=== PATIENT | female | born 1985 | race Caucasian/White ===

== ENCOUNTER 2021-05-13 01:33 | Emergency (ER) | payer MEDICAID ==
--- NOTE | 2021-05-13 02:16 | EDM.PDOC ---
ED HPI GENERAL MEDICAL PROBLEM - General Chief Complaint: General Stated Complaint: swelling bilateral feet and legs Time Seen by Provider: 05/13/21 01:55 Source of Information: Reports: Patient History Limitations: Reports: No Limitations - History of Present Illness INITIAL COMMENTS - FREE TEXT/NARRATIVE: 35 YO OBESE WF PRESENTS TO ER COMPLAINING OF BILATERAL LOWER EXTREMITY SWELLING WHICH HAS BEEN INTERMITTENT OVER THE PAST MONTH. PT REPORTS SHE WAS WALKING AROUND [place] THE [facility] ALL DAY AND NOW HAS INCREASED PAIN AND SWELLING IN HER LOWER EXTREMITIES PROMPTING ER EVALUATION. PT WITH PMH OF NEUROPATHY BUT STATES SHE IS NOT TAKING ANY MEDICATIONS CURRENTLY. PT DENIES CHEST PAIN, SHORTNESS OF BREATH, OR ANY KNOWN INJURY. PT WITH CHRONIC TOBACCO USE HISTORY BUT DENIES CRAMPING OF LOWER EXTREMITIES WITH INCREASED ACTIVITY. Duration: Chronic Location: Reports: Lower Extremity, Left, Lower Extremity, Right Quality: Reports: Ache Severity: Mild Improves with: Reports: Rest Worsens with: Reports: Movement Associated Symptoms: Reports: No Other Symptoms. Denies: Chest Pain, Shortness of Breath Bilateral Leg Pain Score (Numeric/FACES): 10 - Related Data Allergies Allergy/AdvReac Type Severity Reaction Status Date / Time bupropion HCl Allergy Cannot Verified 05/13/21 01:49 [From Wellbutrin] Remember nortriptyline [Nortriptyline] Allergy Depression Verified 05/13/21 01:49 tramadol HCl [From Ultram] Allergy Confusion Verified 05/13/21 01:49 Home Meds: Home Meds Furosemide [Lasix] 20 mg PO Q8H PRN #10 tab 05/13/21 [Rx] Past Medical History HEENT History: Reports: Impaired Vision Gastrointestinal History: Reports: Irritable Bowel Syndrome Genitourinary History: Reports: None 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 energy drinks - one daiy. pepsi - 2 cans per day ED ROS GENERAL - Review of Systems Review Of Systems: See Below Constitutional: Reports: No Symptoms HEENT: Reports: No Symptoms Respiratory: Reports: No Symptoms Cardiovascular: Reports: No Symptoms Endocrine: Reports: No Symptoms GI/Abdominal: Reports: No Symptoms : Reports: No Symptoms Musculoskeletal: Reports: Leg Pain Skin: Reports: No Symptoms Neurological: Reports: No Symptoms Psychiatric: Reports: No Symptoms Hematologic/Lymphatic: Reports: No Symptoms Immunologic: Reports: No Symptoms ED EXAM, GENERAL - Physical Exam Exam: See Below Exam Limited By: No Limitations General Appearance: Alert, WD/WN, No Apparent Distress Head: Atraumatic, Normocephalic Neck: Normal Inspection, Supple, Non-Tender, Full Range of Motion Respiratory/Chest: No Respiratory Distress, Lungs Clear, Normal Breath Sounds, No Accessory Muscle Use, Chest Non-Tender Cardiovascular: Normal Peripheral Pulses, Regular Rate, Rhythm, No Edema, No Gal lop, No JVD, No Murmur, No Rub GI/Abdominal: Normal Bowel Sounds, Soft, Non-Tender, No Organomegaly, No Distention, No Abnormal Bruit, No Mass Back Exam: Normal Inspection, Full Range of Motion, NT Extremities: Leg Pain. No: Increased Warmth, Redness Neurological: Alert, Oriented, CN II-XII Intact, Normal Cognition, Normal Gait, Normal Reflexes, No Motor/Sensory Deficits Psychiatric: Normal Affect, Normal Mood Skin Exam: Warm, Dry, Intact, Normal Color, No Rash Lymphatic: No Adenopathy Course - Vital Signs Last Recorded V/S: Last Vital Signs Temp 97.6 F 05/13/21 02:00 Pulse 104 H 05/13/21 02:00 Resp 20 05/13/21 02:00 BP 135/89 05/13/21 02:00 Pulse Ox 95 05/13/21 02:00 - Orders/Labs/Meds Meds: Medications Discontinued Medications Generic Name Dose Route Start Last Admin Trade Name Campos PRN Reason Stop Dose Admin Furosemide 40 mg 05/13/21 02:17 05/13/21 02:22 Furosemide 20 Mg Tab PO 05/13/21 02:18 40 mg ONETIME ONE Administration Ketorolac Tromethamine 60 mg 05/13/21 02:17 05/13/21 02:25 Ketorolac 60 Mg/2 Ml Sdv IM 05/13/21 02:18 60 mg ONETIME ONE Administration Departure - Departure Time of Disposition: 02:23 Disposition: Home, Self-Care 01 Condition: Good Clinical Impression: Peripheral edema - Discharge Information Prescriptions: Furosemide [Lasix] 20 mg PO Q8H PRN #10 tab PRN Reason: Other Instructions: Peripheral Edema Referrals: Ramona Sutherland, VP SECURITY [Nurse Practitioner] - Forms: ED Department Discharge Additional Instructions: 1. DISCHARGE HOME 2. LASIX 20MG ORALLY DAILY NEEDED FOR LOWER EXTREMITY SWELLING 3. COMPRESSION STOCKING TO LOWER EXTREMITIES 4. ELEVATE LEGS AT REST 5. FOLLOW UP WITH PCP FOR FURTHER EVALUATION AND TREATMENT 6. RETURN TO ER FOR WORSENING SYMPTOMS Sepsis Event Note (ED) - Focused Exam Vital Signs: Vital Signs Temp Pulse Resp BP Pulse Ox 05/13/21 02:00 97.6 F 104 H 20 135/89 95 - Assessment/Plan Assessment:: 1. PERIPHERAL EDEMA Plan: 1. DISCHARGE HOME 2. LASIX 20MG ORALLY DAILY NEEDED FOR LOWER EXTREMITY SWELLING 3. COMPRESSION STOCKING TO LOWER EXTREMITIES 4. ELEVATE LEGS AT REST 5. FOLLOW UP WITH PCP FOR FURTHER EVALUATION AND TREATMENT 6. RETURN TO ER FOR WORSENING SYMPTOMS
[2021-05-13] MEDS ORDERED: Furosemide 20 MG Tab PO ONE (02:17)
[2021-05-13] MEDS ORDERED: Ketorolac 60 MG/2 ML SDV IM ONE (02:17)
[2021-05-13 03:50] VITALS: BP 135/89; PULSE 104
== END 2021-05-13 02:48 | disposition home or self-care (01) ==
LOC: KA.ED 01:33
DX: R60.0 Localized edema (principal); E66.9 Obesity, unspecified; Z68.41 Body mass index [BMI] 40.0-44.9, adult; Z88.5 Allergy status to narcotic agent; Z88.8 Allergy status to other drugs, medicaments and biological substances
CPT/HCPCS: 96372; 99283; A9270-GY; J1885

== ENCOUNTER 2021-08-24 12:14 | Emergency (ER) | payer MEDICARE, MEDICAID ==
[2021-08-24 13:08] VITALS: PULSE 69
--- NOTE | 2021-08-24 13:23 | EDM.PDOC ---
ED HPI GENERAL MEDICAL PROBLEM - General Chief Complaint: General Stated Complaint: SEIZURE possible Time Seen by Provider: 08/24/21 12:20 Source of Information: Reports: Patient History Limitations: Reports: No Limitations - History of Present Illness INITIAL COMMENTS - FREE TEXT/NARRATIVE: 35-year-old female is brought in by EMS for possible history of a seizure. Patient was at a gas station in her car. Evidently as she was unresponsive although was not unconscious. She denies any knowledge of having a seizure. She states that she had a seizure about a year ago this was unwitnessed at that time. She does take some medications for anxiety and depression. She has no other complaints of. She had no loss of bowel or bladder. She is appropriate, interactive and answers questions without difficulty upon exam. Primary care is in [place] . Onset: Today Onset Date: 08/24/21 Duration: Minutes:, Resolved Prior to Arrival Location: Reports: Generalized Severity: Mild Improves with: Reports: None Worsens with: Reports: None Associated Symptoms: Reports: No Other Symptoms, Seizure (Questionable for possible seizure) - Related Data Allergies Allergy/AdvReac Type Severity Reaction Status Date / Time bupropion HCl Allergy Cannot Verified 05/13/21 01:49 [From Wellbutrin] Remember gabapentin Allergy Fatigue Verified 08/24/21 12:26 nortriptyline [Nortriptyline] Allergy Depression Verified 05/13/21 01:49 tramadol HCl [From Ultram] Allergy Confusion Verified 05/13/21 01:49 Home Meds: Home Meds ARIPiprazole [Abilify] 15 mg PO DAILY 08/24/21 [History] Albuterol Sulfate [Albuterol Sulfate Hfa] 8.5 gm IH Q6H PRN 08/24/21 [History] Baclofen 10 mg PO TID 08/24/21 [History] Buprenorphine [Subutex] 8 mg SL BID 08/24/21 [History] DULoxetine [Cymbalta] 120 mg PO DAILY 08/24/21 [History] Fluconazole [Diflucan] 150 mg PO ASDIRECTED 08/24/21 [History] Pregabalin [Lyrica] 200 mg PO TID 08/24/21 [History] Sulfamethoxazole/Trimethoprim [Bactrim Ds Tablet] 1 each PO BID 08/24/21 [History] hydrOXYzine HCL [Atarax] 50 mg PO Q8H PRN 08/24/21 [History] lamoTRIgine [Lamictal] 25 mg PO DAILY 08/24/21 [History] lamoTRIgine [Lamictal] 100 mg PO DAILY 08/24/21 [History] traZODone HCl [Trazodone HCl] 150 mg PO BEDTIME 08/24/21 [History] Past Medical History HEENT History: Reports: Impaired Vision Respiratory History: Reports: Asthma Gastrointestinal History: Reports: Irritable Bowel Syndrome Genitourinary History: Reports: None CADD OPERATOR History: Reports: Endometrial Ablation, Polycystic Ovaries, Other CADD OPERATOR History: PCOS Musculoskeletal History: Reports: Back Pain, Chronic, Neck Pain, Chronic Psychiatric History: Reports: Anxiety, Bipolar, Depression, OCD, Panic Attack Other Psychiatric History: Borderline Personality Disorder Endocrine/Metabolic History: Reports: Obesity/BMI 30+ Other Dermatologic History: Hirsutism - Infectious Disease History Infectious Disease History: Reports: Chicken Pox - Past Surgical History Female Surgical History: Reports: Section, Tubal Ligation Social & Family History - Tobacco Use Tobacco Use Status *Q: Current Every Day Tobacco User Years of Tobacco use: 20 Packs/Tins Daily: 1 - Caffeine Use Caffeine Use: Reports: Coffee, Energy Drinks, Soda Other Caffeine Use: coffee - couple pots of coffee. energy drinks - one daiy. pepsi - 2 cans per day - Recreational Drug Use Recreational Drug Use: Yes Drug Use in Last 12 Months: No Recreational Drug Type: Reports: Marijuana/Hashish ED ROS GENERAL - Review of Systems Review Of Systems: See Below Constitutional: Reports: No Symptoms HEENT: Reports: No Symptoms Respiratory: Reports: No Symptoms Cardiovascular: Reports: No Symptoms Endocrine: Reports: No Symptoms GI/Abdominal: Reports: No Symptoms : Reports: No Symptoms Musculoskeletal: Reports: No Symptoms Skin: Reports: No Symptoms Neurological: Reports: No Symptoms Psychiatric: Reports: Anxiety, Depression Hematologic/Lymphatic: Reports: No Symptoms Immunologic: Reports: No Symptoms ED EXAM, GENERAL - Physical Exam Exam: See Below Exam Limited By: No Limitations General Appearance: Alert, WD/WN, Moderate Distress Eye Exam: Bilateral Eye: EOMI, PERRL Ears: Hearing Grossly Normal Nose: Normal Inspection, Normal Mucosa Throat/Mouth: Normal Inspection, Normal Lips, Normal Teeth, Normal Oropharynx, Normal Voice, No Airway Compromise Head: Atraumatic, Normocephalic Neck: Normal Inspection, Supple, Non-Tender, Full Range of Motion Respiratory/Chest: No Respiratory Distress, Lungs Clear, Normal Breath Sounds, No Accessory Muscle Use, Chest Non-Tender Cardiovascular: Normal Peripheral Pulses, Regular Rate, Rhythm, No Murmur GI/Abdominal: Normal Bowel Sounds, Soft, Non-Tender, No Organomegaly, No Distention, No Abnormal Bruit, No Mass Back Exam: Normal Inspection Extremities: Normal Inspection, Normal Capillary Refill Neurological: Alert, Oriented, CN II-XII Intact, Normal Cognition, Normal Gait, Normal Reflexes, No Motor/Sensory Deficits Psychiatric: Normal Affect, Normal Mood Skin Exam: Warm, Dry, Intact, Normal Color, No Rash Lymphatic: No Adenopathy Course - Vital Signs Last Recorded V/S: Last Vital Signs Temp 96.8 F L 08/24/21 12:20 Pulse 69 08/24/21 14:00 Resp 18 08/24/21 12:30 BP 118/74 08/24/21 14:00 Pulse Ox 96 08/24/21 14:00 - Orders/Labs/Meds Labs: Laboratory Tests 08/24/21 08/24/21 08/24/21 Range/Units 13:25 13:35 13:35 WBC 7.19 (5.00-10.00) 10^3/uL RBC 4.81 (3.80-5.50) 10^6/uL Hgb 14.5 (12.0-16.0) g/dL Hct 43.8 (37.0-47.0) % MCV 91.1 (82.0-92.0) fL MCH 30.1 (27.0-31.0) pg MCHC 33.1 (32.0-36.0) g/dL RDW 12.4 (11.5-14.5) % Plt Count 234 (150-400) 10^3/uL MPV 9.8 (7.4-10.4) fL Immature Gran % (Auto) 0.3 (0.0-5.0) % Neut % (Auto) 63.5 (50.0-70.0) % Lymph % (Auto) 25.7 (20.0-40.0) % Butts % (Auto) 8.1 H (2.0-8.0) % Eos % (Auto) 1.8 (1.0-3.0) % Baso % (Auto) 0.6 (0.0-1.0) % Neut # (Auto) 4.57 (2.50-7.00) 10^3/uL Lymph # (Auto) 1.85 (1.00-4.00) 10^3/uL Butts # (Auto) 0.58 (0.10-0.80) 10^3/uL Eos # (Auto) 0.13 (0.10-0.30) 10^3/uL Baso # (Auto) 0.04 (0.00-0.10) 10^3/uL Immature Gran # (Auto) 0.02 (0.00-0.50) 10^3/uL Sodium (136-145) mmol/L Potassium (3.5-5.1) mmol/L Chloride (98-107) mmol/L Carbon Dioxide (21.0-32.0) mmol/L Anion Gap (5-15) mmol/L BUN (7-18) mg/dL Creatinine (0.51-1.17) mg/dL Est Cr Clr Drug Dosing mL/min Estimated GFR (MDRD) mL/min Glucose (70-140) mg/dL Calcium (8.7-10.3) mg/dL B-Natriuretic Peptide Cancelled Specimen Type Urine Color (YELLOW) Urine Appearance (CLEAR) Urine pH (5.0-9.0) Ur Specific [place] (1.005-1.030) Urine Protein (NEGATIVE) mg/dL Urine Glucose (UA) (NEGATIVE) mg/dL Urine Ketones (NEGATIVE) mg/dL Urine Occult Blood (NEGATIVE) Urine Nitrite (NEGATIVE) Urine Bilirubin (NEGATIVE) Urine Urobilinogen (0.2-1.0) E.U./dL Ur Leukocyte Esterase (NEGATIVE) Urine RBC (0-5) /HPF Urine WBC (0-5) /HPF Ur Epithelial Cells /LPF Urine Bacteria (NONE TO FEW) /HPF Urine Opiates Screen Negative (NEGATIVE) Ur Oxycodone Screen Negative (NEGATIVE) Urine Methadone Screen Negative (NEGATIVE) Ur Propoxyphene Screen Negative (NEGATIVE) Ur Barbiturates Screen Negative (NEGATIVE) Ur Tricyclics Screen Positive H (NEGATIVE) Ur Phencyclidine Scrn Negative (NEGATIVE) Ur Amphetamine Screen Negative (NEGATIVE) U Methamphetamines Scrn Negative (NEGATIVE) U Benzodiazepines Scrn Negative (NEGATIVE) U Cocaine Metab Screen Negative (NEGATIVE) U Marijuana (THC) Screen Positive H (NEGATIVE) 08/24/21 08/24/21 Range/Units 13:45 14:10 WBC (5.00-10.00) 10^3/uL RBC (3.80-5.50) 10^6/uL Hgb (12.0-16.0) g/dL Hct (37.0-47.0) % MCV (82.0-92.0) fL MCH (27.0-31.0) pg MCHC (32.0-36.0) g/dL RDW (11.5-14.5) % Plt Count (150-400) 10^3/uL MPV (7.4-10.4) fL Immature Gran % (Auto) (0.0-5.0) % Neut % (Auto) (50.0-70.0) % Lymph % (Auto) (20.0-40.0) % Butts % (Auto) (2.0-8.0) % Eos % (Auto) (1.0-3.0) % Baso % (Auto) (0.0-1.0) % Neut # (Auto) (2.50-7.00) 10^3/uL Lymph # (Auto) (1.00-4.00) 10^3/uL Butts # (Auto) (0.10-0.80) 10^3/uL Eos # (Auto) (0.10-0.30) 10^3/uL Baso # (Auto) (0.00-0.10) 10^3/uL Immature Gran # (Auto) (0.00-0.50) 10^3/uL Sodium 139 (136-145) mmol/L Potassium 4.8 (3.5-5.1) mmol/L Chloride 102 (98-107) mmol/L Carbon Dioxide 30.3 (21.0-32.0) mmol/L Anion Gap 11.5 (5-15) mmol/L BUN 9 (7-18) mg/dL Creatinine 0.85 (0.51-1.17) mg/dL Est Cr Clr Drug Dosing 79.77 mL/min Estimated GFR (MDRD) > 60 mL/min Glucose 106 (70-140) mg/dL Calcium 8.2 L (8.7-10.3) mg/dL B-Natriuretic Peptide Specimen Type Urincc Urine Color Yellow (YELLOW) Urine Appearance Clear (CLEAR) Urine pH 7.0 (5.0-9.0) Ur Specific [place] 1.015 (1.005-1.030) Urine Protein Negative (NEGATIVE) mg/dL Urine Glucose (UA) Negative (NEGATIVE) mg/dL Urine Ketones Negative (NEGATIVE) mg/dL Urine Occult Blood Negative (NEGATIVE) Urine Nitrite Negative (NEGATIVE) Urine Bilirubin Negative (NEGATIVE) Urine Urobilinogen 0.2 (0.2-1.0) E.U./dL Ur Leukocyte Esterase Negative (NEGATIVE) Urine RBC Not seen (0-5) /HPF Urine WBC 0-5 (0-5) /HPF Ur Epithelial Cells Few /LPF Urine Bacteria Few (NONE TO FEW) /HPF Urine Opiates Screen (NEGATIVE) Ur Oxycodone Screen (NEGATIVE) Urine Methadone Screen (NEGATIVE) Ur Propoxyphene Screen (NEGATIVE) Ur Barbiturates Screen (NEGATIVE) Ur Tricyclics Screen (NEGATIVE) Ur Phencyclidine Scrn (NEGATIVE) Ur Amphetamine Screen (NEGATIVE) U Methamphetamines Scrn (NEGATIVE) U Benzodiazepines Scrn (NEGATIVE) U Cocaine Metab Screen (NEGATIVE) U Marijuana (THC) Screen (NEGATIVE) - Re-Assessments/Exams Free Text/Narrative Re-Assessment/Exam: 08/24/21 14:32 Patient has been resting comfortably. She has no complaints no concerns. No recurrent confusion or evidence of any signs of seizure. Lab work looks unremarkable. She does have positive for marijuana. Departure - Departure Time of Disposition: 14:33 Disposition: Home, Self-Care 01 Condition: Good Clinical Impression: Change in level of consciousness - Discharge Information Instructions: Confusion, Seizure, Adult Referrals: PCP,Not In Area [Ordering Only Provider] - Forms: ED Department Discharge Care Plan Goals: 1. Resume regular medications as prescribed 2. With your primary care in 7 to 10 days for clinical check 3. Diet as tolerated 4. Resume regular activities. Sepsis Event Note (ED) - Evaluation Sepsis Screening Result: No Definite Risk - Focused Exam Vital Signs: Vital Signs Temp Pulse Resp BP Pulse Ox 08/24/21 14:00 69 118/74 96 08/24/21 13:30 69 127/76 98 08/24/21 13:00 69 121/74 98 08/24/21 12:45 77 131/83 96 08/24/21 12:30 75 18 120/73 95 08/24/21 12:20 96.8 F L 75 18 129/72 96 - Assessment/Plan Assessment:: Altered level of consciousness, concern for possible seizure, resolved prior to arrival Plan: 1. Continue with your regular home prescribed medications 2. With your primary care in 7 to 10 days for clinical check. 3. Normal diet 4. Activities as tolerated
[2021-08-24 13:50] LABS: BARBITURATE SCREEN,URINE NEGATIVE (NEGATIVE)
[2021-08-24 13:51] LABS: BENZODIAZEPINES SCREEN,URINE NEGATIVE (NEGATIVE); TCA SCREEN,URINE POSITIVE (NEGATIVE); THC SCREEN,URINE 50 NG/ML POSITIVE (NEGATIVE)
[2021-08-24 14:15] VITALS: BP 118/74
[2021-08-24 14:22] LABS: ANION GAP 11.5 mmol/L (5-15); CHLORIDE,CL 102 mmol/L (98-107); SODIUM,NA 139 mmol/L (136-145)
== END 2021-08-24 14:35 | disposition home or self-care (01) ==
LOC: KA.ED 12:14
DX: R41.82 Altered mental status, unspecified (principal); E66.9 Obesity, unspecified; Z68.41 Body mass index [BMI] 40.0-44.9, adult; Z88.5 Allergy status to narcotic agent; Z88.8 Allergy status to other drugs, medicaments and biological substances; Z72.0 Tobacco use
CPT/HCPCS: 36415; 80048; 80305-QW; 81001; 85025; 99283; 99285

== ENCOUNTER 2021-12-23 11:30 | Emergency (ER) | payer MEDICARE, MEDICAID ==
[2021-12-23] MEDS ORDERED: Sodium Chloride 0.9% 10 ML Syringe FLUSH PRN (11:44)
[2021-12-23] MEDS: Sodium Chloride 0.9% 1,000 ML IV ONE (12:00)
[2021-12-23] MEDS: Ondansetron 4 MG/2 ML SDV IVPUSH ONE (12:01)
[2021-12-23 12:07] VITALS: BP 122/85; PULSE 98
[2021-12-23 12:19] LABS: ANION GAP 17.1 mmol/L (5-15); CHLORIDE,CL 103 mmol/L (98-107); SODIUM,NA 139 mmol/L (136-145)
[2021-12-23] MEDS: Sodium Chloride 0.9% 50 ML IV ONE (12:32)
[2021-12-23] MEDS: Iopamidol 755 Mg/ML 75 ML Bottle IVPUSH ONE (12:32)
[2021-12-23 12:46] LABS: CORONAVIRUS COVID-19 NAA NEGATIVE (NEGATIVE)
[2021-12-23] MEDS: Loperamide 2 MG Cap PO ONE (13:47)
[2021-12-23] MEDS: Ondansetron 4 MG Tab.DIS PO ONE (13:47)
== END 2021-12-23 13:47 | disposition home or self-care (01) ==
LOC: KA.ED 11:30
DX: A08.4 Viral intestinal infection, unspecified (principal); E66.9 Obesity, unspecified; Z68.41 Body mass index [BMI] 40.0-44.9, adult; Z20.822 Contact with and (suspected) exposure to COVID-19
CPT/HCPCS: 0240U; 36415; 71046; 74177; 80053; 81003; 82150; 83690; 85025; 86140; 96374; 99284; 99284-25; A9270-GY; J2405; J7030; Q9967

== ENCOUNTER 2022-01-25 21:05 | Emergency (ER) | payer MEDICARE, MEDICAID ==
[2022-01-25] MEDS ORDERED: LORazepam 0.5 MG Tab ONE (21:18)
[2022-01-25] MEDS ORDERED: LORazepam 0.5 MG Tab PO ONE ×2 (21:20→22:10)
[2022-01-25 21:49] VITALS: BP 129/76; PULSE 91
== END 2022-01-25 22:25 | disposition home or self-care (01) ==
LOC: KA.ED 21:05
DX: F41.9 Anxiety disorder, unspecified (principal); E66.9 Obesity, unspecified; Z68.41 Body mass index [BMI] 40.0-44.9, adult; Z88.8 Allergy status to other drugs, medicaments and biological substances; Z72.0 Tobacco use
CPT/HCPCS: 99283; A9270-GY

== ENCOUNTER 2022-02-17 13:59 | Emergency (ER) | payer MEDICARE, MEDICAID ==
[2022-02-17] MEDS ORDERED: Ketorolac 30 MG/ML SDV IVPUSH ONE (14:44)
[2022-02-17] MEDS ORDERED: methylPREDNISolone Sodium Succinate 125 MG/2 ML SDV IVPUSH ONE (14:44)
[2022-02-17 14:49] VITALS: BP 137/79; PULSE 116
[2022-02-17] MEDS ORDERED: Acetaminophen/HYDROcodone 325-10 MG Tab PO ONE (15:01)
[2022-02-17] MEDS ORDERED: Acetaminophen/HYDROcodone 325-10 MG Tab ONE (15:34)
== END 2022-02-17 15:35 | disposition home or self-care (01) ==
LOC: KA.ED 13:59
DX: G89.29 Other chronic pain (principal); M54.50 Low back pain, unspecified; E66.9 Obesity, unspecified; Z68.30 Body mass index [BMI] 30.0-30.9, adult; Z88.8 Allergy status to other drugs, medicaments and biological substances; Z88.5 Allergy status to narcotic agent
CPT/HCPCS: 96374; 96375; 99283; 99283-25; A9270-GY; J1885; J2930

== ENCOUNTER 2022-02-21 18:26 | Emergency (ER) | payer MEDICARE, MEDICAID ==
[2022-02-21 19:04] VITALS: BP 123/73; PULSE 94
[2022-02-21] MEDS: Ketorolac 60 MG/2 ML SDV IM ONE (19:54)
[2022-02-21] MEDS: Ketorolac 60 MG/2 ML SDV ONE (19:56)
== END 2022-02-21 20:10 | disposition home or self-care (01) ==
LOC: KA.ED 18:26
DX: M25.561 Pain in right knee (principal); F17.210 Nicotine dependence, cigarettes, uncomplicated; E66.9 Obesity, unspecified; Z68.39 Body mass index [BMI] 39.0-39.9, adult; Z88.5 Allergy status to narcotic agent; Z88.8 Allergy status to other drugs, medicaments and biological substances; Z79.899 Other long term (current) drug therapy
CPT/HCPCS: 73560-50; 73560-RT; 73565; 96372; 99283; 99283-25; J1885